=== PATIENT | female | born 1980 ===

== ENCOUNTER → 2017-09-04 | Outpatient (CLI) | payer OTHER | END | disposition home or self-care (01) | LOC: PPH VACUNA 11:05 | DX: Z23 Encounter for immunization (principal) ==

== ENCOUNTER 2017-09-27 19:17 | Inpatient (IN) | payer OTHER ==
[~2017-09-27] VITALS: Ht 160 cm; Wt 1.8 kg
[2017-09-27] MEDS ORDERED: ATABEX DHA 200200 MG PO (21:46)
[2017-09-27] MEDS ORDERED: IRON325 MG PO (21:46)
[2017-09-27] MEDS ORDERED: ADULT ASPIRIN81 MG PO (21:48)
[2017-10-01] MEDS ORDERED: OXYC1TAB9 PO (09:49)
[2017-10-01] MEDS ORDERED: KAOPECTATE240 MG PO (09:49)
[2017-10-01] MEDS ORDERED: Mylicon 125MG PO (09:49)
== END 2017-10-01 11:35 | DRG 765 ==
LOC: LDR 19:17 → O/R 09-28 13:00 → OB/GYN 09-28 16:11 → LDR 09-28 20:19 → OB/GYN 09-29 19:22
PROVIDERS: Specialist
PROC: 4A1HXCZ Monitoring of Products of Conception, Cardiac Rate, External Approach (ICD-10-PCS; 2017-09-27)
PROC: BY4GZZZ Ultrasonography of Third Trimester, Multiple Gestation (ICD-10-PCS; 2017-09-27)
PROC: 4A033R1 Measurement of Arterial Saturation, Peripheral, Percutaneous Approach (ICD-10-PCS; 2017-09-28)
PROC: 10D00Z1 Extraction of Products of Conception, Low, Open Approach (ICD-10-PCS; principal; 2017-09-28 13:00)
DX: O32.8XX2 Maternal care for other malpresentation of fetus, fetus 2 (principal); O60.14X2 Preterm labor third trimester with preterm delivery third trimester, fetus 2; O14.13 Severe pre-eclampsia, third trimester; O30.003 Twin pregnancy, unspecified number of placenta and unspecified number of amniotic sacs, third trimester; Z3A.36 36 weeks gestation of pregnancy; Z37.2 Twins, both liveborn

== ENCOUNTER 2017-09-27 19:32 | Outpatient (CLI) | payer OTHER ==
[2017-09-27] MEDS ORDERED: ATABEX DHA 200200 MG PO (21:46)
[2017-09-27] MEDS ORDERED: IRON325 MG PO (21:46)
[2017-09-27] MEDS ORDERED: ADULT ASPIRIN81 MG PO (21:48)
== END 2017-09-28 17:13 | disposition still patient (30) ==
LOC: OBS/DEL 19:32
DX: O60.14X2 Preterm labor third trimester with preterm delivery third trimester, fetus 2 (principal)